=== PATIENT | female | born 1995 ===

== ENCOUNTER 2019-10-21 22:41 | Emergency (ER) | payer SELFPAY ==
[2019-10-21] MEDS ORDERED: NA CHLORIDE 0.9% 2,000 ML ONE (23:48)
[2019-10-22 00:12] LABS: Absolute Lymphocytes (CBC) 1.1 K/uL (0.7-4.9); Basophils % 0.3 % (0-1.3); Hematocrit 41.3 % (36.0-45.0); Lymphocytes % 6.5 % (15.3-44.8); MPV 8.7 fL (7.6-11.3); RBC Red Blood Cell Count 4.48 M/uL (3.86-4.86)
[2019-10-22 00:22] LABS: Protime INR 1.02
[2019-10-22 00:26] LABS: ALT/SGPT 24 U/L (12-78); AST/SGOT 14 U/L (15-37); Albumin 3.9 g/dL (3.4-5.0); Alkaline Phosphatase 83 U/L (45-117); BUN Blood Urea Nitrogen 10 mg/dL (7-18); Bicarbonate 23 mmol/L (21-32); Bilirubin Direct < 0.1 mg/dL (0-0.2); Bilirubin Total 0.4 mg/dL (0.2-1.0); Glucose Level 107 mg/dL (74-106); Lipase 80 U/L (73-393); Potassium 3.7 mmol/L (3.5-5.1); Sodium Level 138 mmol/L (136-145)
[2019-10-22 01:33] LABS: Urine Blood NEGATIVE (NEG); Urine Glucose NEGATIVE (NEG); Urine Protein NEGATIVE (NEG); Urine pH 8.5 (5.0-7.0)
--- NOTE | 2019-10-22 01:35 | EDPHYS ---
Physician Documentation [facility] Name: Ghazala Acosta Age: 24 yrs Sex: Female : 1995 Arrival Date: 10/21/2019 Time: 22:45 Bed 2 Private MD: ED Physician Berhane Fraser HPI: 10/21 00:00 This 24 yrs old Female presents to ER via Ambulatory with complaints of LEFT BREAST jr8 PAIN, CHILLS. 00:00 Onset: The symptoms/episode began/occurred acutely, today. Associated signs and jr8 symptoms: The patient has no apparent associated signs or symptoms. Modifying factors: The patient symptoms are alleviated by nothing, the patient symptoms are aggravated by nothing. The patient has not experienced similar symptoms in the past. The patient has not recently seen a physician. Patient stated that she is currently breast feeding. Stated that she started to have some pain to left breast tonight. Fed child on that breast thinking it was clogged duct. After feeding pain persisted. Now with fever and chills. Has has sore throat as well. Denies any other symptoms . Historical: - Allergies: 10/20 23:01 No Known Allergies; ll1 - PMHx: 23:01 None; ll1 - PSHx: 23:01 ; ll1 - Immunization history:: Flu vaccine is not up to date. - Social history:: Smoking status: Patient denies any tobacco usage or history of. Patient/guardian denies using alcohol, street drugs, tobacco products. ROS: 10/21 00:00 Eyes: Negative for injury, pain, redness, and discharge, ENT: Negative for injury, jr8 pain, and discharge, Neck: Negative for injury, pain, and swelling, Cardiovascular: Negative for chest pain, palpitations, and edema, Respiratory: Negative for shortness of breath, cough, wheezing, and pleuritic chest pain, Abdomen/GI: Negative for abdominal pain, nausea, vomiting, diarrhea, and constipation, Back: Negative for injury and pain, MS/Extremity: Negative for injury and deformity, Skin: Negative for injury, rash, and discoloration, Neuro: Negative for headache, weakness, numbness, tingling, and seizure. Constitutional: Positive for chills, fever. Exam: 00:00 Eyes: Pupils equal round and reactive to light, extra-ocular motions intact. Lids and jr8 lashes normal. Conjunctiva and sclera are non-icteric and not injected. Cornea within normal limits. Periorbital areas with no swelling, redness, or edema. ENT: Nares patent. No nasal discharge, no septal abnormalities noted. Tympanic membranes are normal and external auditory canals are clear. Oropharynx with no redness, swelling, or masses, exudates, or evidence of obstruction, uvula midline. Mucous membranes moist. Neck: Trachea midline, no thyromegaly or masses palpated, and no cervical lymphadenopathy. Supple, full range of motion without nuchal rigidity, or vertebral point tenderness. No Meningismus. Cardiovascular: Regular rate and rhythm with a normal S1 and S2. No gallops, murmurs, or rubs. Normal PMI, no JVD. No pulse deficits. Respiratory: Lungs have equal breath sounds bilaterally, clear to auscultation and percussion. No rales, rhonchi or wheezes noted. No increased work of breathing, no retractions or nasal flaring. Abdomen/GI: Soft, non-tender, with normal bowel sounds. No distension or tympany. No guarding or rebound. No evidence of tenderness throughout. Back: No spinal tenderness. No costovertebral tenderness. Full range of motion. Skin: Warm, dry with normal turgor. Normal color with no rashes, no lesions, and no evidence of cellulitis. MS/ Extremity: Pulses equal, no cyanosis. Neurovascular intact. Full, normal range of motion. Neuro: Awake and alert, GCS 15, oriented to person, place, time, and situation. Cranial nerves II-XII grossly intact. Motor strength 5/5 in all extremities. Sensory grossly intact. Cerebellar exam normal. Normal gait. 00:00 Chest/axilla: Axilla: are normal, Breasts: abscess, not appreciated, cellulitis, is not appreciated, rash, is not appreciated, tenderness, that is mild of the left breast, Mild engorgement of bilateral breasts. Left greater than right , Lymph nodes: lymphadenopathy is not appreciated. 00:04 ECG was reviewed by the Attending Physician. [facility] Vital Signs: 10/20 22:58 BP 112 / 92; Pulse 125; Resp 18; Temp 103.1; Pulse Ox 100% ; Pain 6/10; ll1 23:31 Weight 79.38 kg; Height 5 ft. 4 in. (162.56 cm); 10/21 00:24 BP 107 / 66; Pulse 114; Resp 18; Pulse Ox 100% ; ea 01:30 BP 108 / 63; Pulse 113; Resp 18; Temp 99.9; Pulse Ox 100% ; ea 02:23 BP 117 / 74; Pulse 100; Resp 18; Pulse Ox 100% on R/A; ea 10/20 23:31 Body Mass Index 30.04 (79.38 kg, 162.56 cm) MDM: 10/20 23:27 Patient medically screened. [facility] 10/21 01:32 Data reviewed: vital signs, nurses notes, lab test result(s), radiologic studies, plain jr films, and as a result, I will discharge patient. Data interpreted: Pulse oximetry: on room air is 100 %. Interpretation: normal. Counseling: I had a detailed discussion with the patient and/or guardian regarding: the historical points, exam findings, and any diagnostic results supporting the discharge/admit diagnosis, lab results, radiology results, the need for outpatient follow up, a family practitioner, to return to the emergency department if symptoms worsen or persist or if there are any questions or concerns that arise at home. ED course: Patient feeling better. HR decreased. Fever down. Differential includes possible early mastitis vs UTI vs COVID. Will swab accordingly and put on Abx. If worse knows to come back . 10/20 23:26 Order name: C-Reactive Protein [facility] 10/20 23:26 Order name: Fibrinogen [facility] 10/20 23:26 Order name: Urine Culture [facility] 10/20 23:26 Order name: Basic Metabolic Panel; Complete Time: 00:30 [facility] 10/20 23:26 Order name: Blood Culture Adult (2) [facility] 10/20 23:26 Order name: CBC with Diff; Complete Time: 00:30 [facility] 10/20 23:26 Order name: Lactate; Complete Time: 00:30 [facility] 10/20 23:26 Order name: LFT's; Complete Time: 00:30 [facility] 10/20 23:26 Order name: Lipase; Complete Time: 00:30 [facility] 10/20 23:26 Order name: Procalcitonin; Complete Time: 00:57 [facility] 10/20 23:26 Order name: Protime (+inr); Complete Time: 00:30 [facility] 10/20 23:26 Order name: Ptt, Activated; Complete Time: 00:30 [facility] 10/20 23:26 Order name: Urine Microscopic Only [facility] 10/20 23:26 Order name: Strep; Complete Time: 00:30 [facility] 10/20 23:26 Order name: Chest Single View XRAY [facility] 10/20 23:26 Order name: Cardiac monitoring; Complete Time: 23:52 [facility] 10/20 23:26 Order name: EKG - Nurse/Tech; Complete Time: 23:52 [facility] 10/20 23:26 Order name: IV Saline Lock - Large Bore; Complete Time: 23:52 [facility] 10/20 23:26 Order name: Labs collected and sent; Complete Time: 23:52 [facility] 10/20 23:27 Order name: C-Reactive Protein; Complete Time: 00:30 [facility] 10/20 23:27 Order name: Fibrinogen; Complete Time: 00:30 [facility] 10/20 23:28 Order name: Urine Culture [facility] 10/21 00:30 Order name: Throat Culture [facility] 10/21 01:23 Order name: Urine Dipstick--Ancillary (enter results); Complete Time: 01:34 [facility] 10/21 01:23 Order name: Urine --Ancillary (enter results); Complete Time: 01:34 [facility] 10/21 01:33 Order name: COVID-19 10/20 23:26 Order name: O2 Per Protocol; Complete Time: 23:53 [facility] 10/20 23:26 Order name: O2 Sat Monitoring; Complete Time: 23:53 EC:04 Rate is 118 beats/min. Rhythm is regular, Sinus tachycardia. QRS [place] is Normal. [place] jr8 interval is normal at 156 msec. QRS interval is normal at 74 msec. QT interval is normal at 417 msec. No Q waves. T waves are Normal. No ST changes noted. Clinical impression: Sinus tachycardia. Interpreted by me. Reviewed by me. Administered Medications: 10/20 23:52 Not Given (pt took 1 gram prior to arrival ): Acetaminophen 1000 mg PO once 23:52 Drug: NS 0.9% (30 ml/kg) 30 ml/kg Route: IV; Rate: bolus; Site: left antecubital; 10/21 02:00 Follow up: Response: No adverse reaction; IV Status: Completed infusion ea 01:51 Drug: Rocephin 2 grams Route: IV; Rate: calculated rate; Site: left antecubital; ea 02:15 Follow up: Response: No adverse reaction; IV Status: Completed infusion ea Disposition: 02:30 Co-signature as Attending Physician, Berhane Fraser MD. pkl Disposition: 10/22/19 01:34 Discharged to Home. Impression: Fever, unspecified. - Condition is Stable. - Discharge Instructions: Fever, Adult, Mastitis, and Mastitis, COVID-19. - Prescriptions for Augmentin 875- 125 mg Oral Tablet - take 1 tablet by ORAL route every 12 hours for 10 days; 20 tablet. - Medication Reconciliation Form, Thank You Letter, Antibiotic Education, Prescription Opioid Use form. - Follow up: Private Physician; When: 2 - 3 days; Reason: Recheck today's complaints, Continuance of care, Re-evaluation by your physician. - Problem is new. - Symptoms have improved. Signatures: Dispatcher [employer] EDDE Berhane Fraser MD MD pkl Jason Bautista PA PA jr8 Prachi Mcghee RN RN Slime Calderon RN RN ll1 Corrections: (The following items were deleted from the chart) 02:18 01:34 10/22/2019 01:34 Discharged to Home. Impression: Fever, unspecified. Condition is ea Stable. Forms are Medication Reconciliation Form, Thank You Letter, Antibiotic Education, Prescription Opioid Use. Follow up: Private Physician; When: 2 - 3 days; Reason: Recheck today's complaints, Continuance of care, Re-evaluation by your physician. Problem is new. Symptoms have improved. jr8
--- NOTE | 2019-10-22 01:35 | ER ---
Nurse's Notes [facility] Name: Ghazala Acosta Age: 24 yrs Sex: Female : 1995 Arrival Date: 10/21/2019 Time: 22:45 Bed 2 Private MD: Diagnosis: Fever, unspecified Presentation: 10/20 22:58 Chief complaint: Patient states: Left breast pain and tenderness for 1 day. + Fever and ll1 chills today. + nausea. Breast feeding for 1 year. Coronavirus screen: Patient denies a cough. Patient denies shortness of breath or difficulty breathing. Patient denies measured and/or subjective temperature greater than 100.4F prior to today's visit. Patient denies travel on a cruise ship or to a country the [facility] currently lists as an affected area. Patient denies contact with known and/or suspected case of COVID-19. Proceed with normal triage. Ebola Screen: Patient denies travel to an Ebola-affected area in the 21 days before illness onset. Initial Sepsis Screen: Does the patient meet any 2 criteria? Temp <36.0*C (96.8*F)) or > 38.3*C (100.9*F). HR > 90 bpm. Does the patient have a suspected source of infection? Yes: Other: breast pain and tenderness. Risk Assessment: Do you want to hurt yourself or someone else? Patient reports no desire to harm self or others. Onset of symptoms was October 21, 2019. 22:58 Method Of Arrival: Ambulatory ll1 22:58 Acuity: ZE 3 ll1 Historical: - Allergies: 23:01 No Known Allergies; ll1 - PMHx: 23:01 None; ll1 - PSHx: 23:01 ; ll1 - Immunization history:: Flu vaccine is not up to date. - Social history:: Smoking status: Patient denies any tobacco usage or history of. Patient/guardian denies using alcohol, street drugs, tobacco products. Screenin:53 Abuse screen: Denies threats or abuse. Nutritional screening: No deficits noted. ea Tuberculosis screening: No symptoms or risk factors identified. Fall Risk None identified. Assessment: 23:53 General: Appears in no apparent distress. Behavior is appropriate for age. Pain: ea Complains of pain in left breast. Neuro: Level of Consciousness is awake, alert, obeys commands, Oriented to person, place, time, situation. Cardiovascular: Patient's skin is warm and dry. Respiratory: Airway is patent Respiratory effort is even, unlabored, Respiratory pattern is regular, symmetrical. Derm: Skin is pink, warm \T\ dry. 10/21 00:30 Reassessment: Patient and/or family updated on plan of care and expected duration. Pain ea level reassessed. Patient is alert, oriented x 3, equal unlabored respirations, skin warm/dry/pink. 01:30 Reassessment: Patient and/or family updated on plan of care and expected duration. Pain ea level reassessed. Patient is alert, oriented x 3, equal unlabored respirations, skin warm/dry/pink. 02:22 Reassessment: Patient and/or family updated on plan of care and expected duration. Pain ea level reassessed. Patient is alert, oriented x 3, equal unlabored respirations, skin warm/dry/pink. Discharge instruction given to patient, verbalized the understanding of instruction. Pt left ED ambulatory tolerating well. Vital Signs: 10/20 22:58 BP 112 / 92; Pulse 125; Resp 18; Temp 103.1; Pulse Ox 100% ; Pain 6/10; ll1 23:31 Weight 79.38 kg; Height 5 ft. 4 in. (162.56 cm); 10/21 00:24 BP 107 / 66; Pulse 114; Resp 18; Pulse Ox 100% ; ea 01:30 BP 108 / 63; Pulse 113; Resp 18; Temp 99.9; Pulse Ox 100% ; ea 02:23 BP 117 / 74; Pulse 100; Resp 18; Pulse Ox 100% on R/A; ea 10/20 23:31 Body Mass Index 30.04 (79.38 kg, 162.56 cm) ED Course: 10/20 22:45 Patient arrived in ED. ag3 23:00 Triage completed. ll1 23:01 Arm band placed on Patient notified of wait time. ll1 23:12 Jason Bautista PA is PHCP. jr8 23:22 Prachi Mcghee, RN is Primary Nurse. ea 23:54 Patient has correct armband on for positive identification. Bed in low position. Call ea light in reach. Side rails up X 1. 23:54 Missed attempt(s): 20 gauge in right antecubital area. ea 23:55 Inserted saline lock: 20 gauge in left antecubital area, using aseptic technique. Blood ea collected. 10/21 00:04 Berhane Fraser MD is Attending Physician. jr8 00:51 Chest Single View XRAY In Process Unspecified. EDMS 02:17 No provider procedures requiring assistance completed. IV discontinued, intact, ea bleeding controlled, No redness/swelling at site. Pressure dressing applied. Administered Medications: 10/20 23:52 Not Given (pt took 1 gram prior to arrival ): Acetaminophen 1000 mg PO once ea 23:52 Drug: NS 0.9% (30 ml/kg) 30 ml/kg Route: IV; Rate: bolus; Site: left antecubital; ea 10/21 02:00 Follow up: Response: No adverse reaction; IV Status: Completed infusion ea 01:51 Drug: Rocephin 2 grams Route: IV; Rate: calculated rate; Site: left antecubital; ea 02:15 Follow up: Response: No adverse reaction; IV Status: Completed infusion ea Outcome: 01:34 Discharge ordered by . jr8 02:17 Discharged to home ambulatory. ea 02:17 Condition: stable 02:17 Discharge instructions given to patient, Instructed on discharge instructions, follow up and referral plans. medication usage, Demonstrated understanding of instructions, follow-up care, medications, Prescriptions given X 1. 02:18 Patient left the ED. ea Addendum: 10/26/2019 16:14 Addendum: COVID-19 Result: Negative result given to RN to notify pt. Contacted by: Rico Lima RN. Notified pt of negative COVID 19 swab results. Pt advised that even with a negative test result they should remain in isolation until symptom free for 3 days without medication. Pt also advised to return to the ED for worsening symptoms. Signatures: Dispatcher [employer] Liss Mishra RN RN Jason Goldberg PA PA jr8 Prachi Mcghee RN RN ea [place], Winsy wh Gomez, Alice ag3 Slime Long RN RN ll1
[2019-10-22] MEDS ORDERED: CEFTRIAXONE 1000 MG/VIAL ONE (01:52)
[2019-10-22] MEDS ORDERED: NA CHLORIDE 0.9% 100 ML IV ONE (01:53)
[2019-10-22 02:46] VITALS: O2SAT 100
[2019-10-22 02:48] VITALS: BP 108/63; TEMP 99.9
[2019-10-22 02:56] LABS: Urine Bacteria <20 /HPF (<20); Urine Culture Reflex Order NOT NEEDED; Urine RBC <5 /HPF (NONE SEEN)
--- NOTE | 2019-10-22 10:01 | RAD REPORT ---
EXAM DESCRIPTION: [place] Single View10/22/2019 12:51 am CLINICAL HISTORY: fever COMPARISON: none FINDINGS: The lungs appear clear of acute infiltrate. The heart is normal size IMPRESSION: No acute abnormalities displayed
== END 2019-10-22 02:18 | disposition home or self-care (01) ==
LOC: ER 22:41
DX: R50.9 Fever, unspecified (principal); Z20.828 Contact with and (suspected) exposure to other viral communicable diseases
CPT/HCPCS: 36415; 71045; 80048; 80076; 81003; 81015; 81025; 83605; 83690; 84145; 85025; 85384; 85610; 85730; 86140; 87040; 87070; 87081; 87086; 87088; 93005; 96365; 99284; J7030; U0002